=== PATIENT | female | born 1975 | race Caucasian/White ===

== ENCOUNTER 2016-10-11 14:50 | Emergency (ER) | payer MEDICARE, MEDICAID ==
[~2016-10-11] VITALS: Ht 182.9 cm; Wt 173.2 kg
[~2016-10-11 14:50] MED LIST: MOTRIN 600600 MG/TAB PO; PERCOCET 325 MG1 TA2 PO
[2016-10-11 14:56] VITALS: TEMP 99.2
[2016-10-11] MEDS ORDERED: GLUCOPHAGE500 MG/TAB PO (15:27)
[2016-10-11] MEDS ORDERED: PROZAC 10MG10 MG PO (15:28)
[2016-10-11] MEDS ORDERED: PRINIVIL10 MG PO (15:28)
[2016-10-11] MEDS ORDERED: PERCOCET 325 MG1 TA2 PO (16:34)
[2016-10-11 16:49] VITALS: BP 138/74; PULSE 92
== END 2016-10-11 16:51 | disposition home or self-care (01) ==
LOC: COL.ER 14:50
DX: K04.7 Periapical abscess without sinus (principal); R68.84 Jaw pain
CPT/HCPCS: J1170; J2405; J7030